=== PATIENT | female | born 1975 ===

== ENCOUNTER → 2023-05-19 11:47 | Outpatient (CLI) | payer OTHER ==
[2023-05-19 12:27] LABS: HEMATOCRIT 38.1 % (36.0-45.00); HEMOGLOBIN 12.9 g/dL (12.0-15.00); MEAN CELL VOLUME 93.2 fL (80.00-100.00); MEAN CORPUSCULAR HEMOGLOBIN 31.6 pg (27.00-32.0); MEAN CORPUSCULAR HGB CONC 33.9 g/dl (32.0-36.0); PLATELET COUNT 208 K/uL (150-450); RED BLOOD COUNT 4.09 M/uL (4.00-6.00); RED CELL DISTRIBUTION WIDTH 12.2 % (11.5-14.5)
[2023-05-19 12:52] LABS: MYCOPLASMA PNEUMONIAE IGM NON REACTIVE (NO REACTIVE)
== END | disposition home or self-care (01) ==
LOC: LAB 11:47
PROVIDERS: ATTEND General Practice
DX: B34.9 Viral infection, unspecified (principal); J11.1 Influenza due to unidentified influenza virus with other respiratory manifestations; U07.1 COVID-19

== ENCOUNTER → 2023-10-07 09:20 | Outpatient (CLI) | payer OTHER ==
[2023-10-07 10:58] LABS: HEMATOCRIT 38.5 % (36.0-45.00); MEAN CELL VOLUME 92.6 fL (80.00-100.00); MEAN CORPUSCULAR HEMOGLOBIN 31.4 pg (27.00-32.0); MEAN CORPUSCULAR HGB CONC 33.9 g/dl (32.0-36.0); PLATELET COUNT 236 K/uL (150-450); RED BLOOD COUNT 4.16 M/uL (4.00-6.00); RED CELL DISTRIBUTION WIDTH 12.5 % (11.5-14.5)
[2023-10-07 11:00] LABS: ERYTHROCYTE SEDIMENTATION RATE 14 mm/hr
[2023-10-07 11:13] LABS: ob NEGATIVE (NEGATIVE)
[2023-10-07 11:15] LABS: INR 1.01; PARTIAL THROMBOPLASTIN TIME 27.3 SECONDS (22.0-34.0); PROTHROMBIN TIME 10.2 SECONDS (9.0-11.5)
[2023-10-07 11:40] LABS: ALBUMIN 4.4 gm/dL (3.4-5.0); BILIRUBIN TOTAL 1.05 mg/dL (0.3-1.2); CALCIUM 9.3 mg/dL (8.5-10.1); CHOL HDL RATIO 2.1 (0-5.0); CREATININE SERUM 0.7 mg/dL (0.55-1.02); GFR 88.94; GLOBULINA 3.1 G/DL (2.4-3.5); POTASSIUM 3.95 mEq/L (3.5-5.1); T4 FREE 0.94 NG/ML (0.76-1.46); TOTAL PROTEIN 7.5 gm/dL (6.4-8.2); TSH 1.4 uIU/mL (0.358-3.74)
[2023-10-08 09:09] LABS: ESTRADIOL SERUM 26.6 pg/mL (.)
[2023-10-08 11:12] LABS: FOLLICLE STIMULATING HORMONE 59.8 mIU/mL (.); LEUTEINIZING HORMONE 57.8 mIU/mL (.); PROLACTIN 18.3 ng/mL (4.8-33.4)
== END | disposition home or self-care (01) ==
LOC: LAB 09:20
PROVIDERS: ATTEND Internal Medicine
DX: D64.9 Anemia, unspecified (principal); E11.8 Type 2 diabetes mellitus with unspecified complications; I48.91 Unspecified atrial fibrillation; N39.0 Urinary tract infection, site not specified; E03.9 Hypothyroidism, unspecified; M35.1 Other overlap syndromes; E11.9 Type 2 diabetes mellitus without complications; E55.9 Vitamin D deficiency, unspecified; Z12.11 Encounter for screening for malignant neoplasm of colon; E78.2 Mixed hyperlipidemia; E23.0 Hypopituitarism; N95.1 Menopausal and female climacteric states; D35.2 Benign neoplasm of pituitary gland

== ENCOUNTER 2023-10-08 07:55 | Outpatient (CLI) | payer OTHER | END 2023-10-08 08:06 | disposition home or self-care (01) | LOC: TOM 07:55 | PROVIDERS: ATTEND Internal Medicine | DX: R10.30 Lower abdominal pain, unspecified (principal); K57.92 Diverticulitis of intestine, part unspecified, without perforation or abscess without bleeding ==

== ENCOUNTER 2023-10-24 15:32 | Outpatient (CLI) | payer OTHER | END 2023-10-24 15:50 | disposition home or self-care (01) | LOC: SONOGRAMA 15:32 | PROVIDERS: ATTEND Internal Medicine | DX: N83.209 Unspecified ovarian cyst, unspecified side (principal) ==